=== PATIENT | female | born 1965 | race Caucasian/White ===

== ENCOUNTER → 2020-10-11 10:57 | Outpatient (BNVA) | payer OTHER, SELFPAY | PROVIDERS: PCP Internal Medicine; Referring Provider Internal Medicine; Visit Provider Nurse Practitioner Family | DX: Z12.11 Encounter for screening for malignant neoplasm of colon (principal) | CPT/HCPCS: 99202 ==

== ENCOUNTER 2021-03-01 06:57 | Day surgery (SDC) | payer OTHER, SELFPAY ==
--- NOTE | 2021-01-10 09:13 | P.CONAN_ITS ---
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 Father Lung cancer Sister No problems noted. Meds Allergies Allergy/AdvReac Type Severity Reaction Status Date / Time No Known Allergies Allergy Unverified 10/11/20 11:24 Home Medications Medication Instructions Recorded Confirmed Last Taken Type cholecalciferol (vitamin D3) 50 50 mcg PO DAILY 10/11/20 01/05/21 Unknown History mcg (2,000 unit) capsule lisinopril 20 1 tab PO DAILY 10/11/20 01/05/21 Unknown History mg-hydrochlorothiazide 12.5 mg tablet simvastatin 20 mg tablet 20 mg PO DAILY 10/11/20 01/05/21 Unknown History Exam Exam Date and Time: January 10, 2021 0913 Assessment and Plan Assessment Anesthesia Assessment: Chart Reviewed
--- NOTE | 2021-02-28 09:46 | P.CONAN_ITS ---
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 Father Lung cancer Sister No problems noted. Social History Social History Patient Tobacco Use Status: Current everyday Tobacco user Cigarettes Per Day: 2 Use of substances other than those prescribed or required for medical reasons: No Are you DNR?: No Advance Directives: No Advance Directives Information Provided: Yes Meds Allergies Allergy/AdvReac Type Severity Reaction Status Date / Time No Known Allergies Allergy Verified 03/01/21 07:20 Home Medications Medication Instructions Recorded Confirmed Last Taken Type cholecalciferol (vitamin D3) 50 50 mcg PO DAILY 10/11/20 01/05/21 Unknown History mcg (2,000 unit) capsule lisinopril 20 1 tab PO DAILY 10/11/20 01/05/21 Unknown History mg-hydrochlorothiazide 12.5 mg tablet simvastatin 20 mg tablet 20 mg PO DAILY 10/11/20 01/05/21 Unknown History Exam Exam Date and Time: February 28, 2021 0946 Assessment and Plan Assessment Anesthesia Assessment: Chart Reviewed Documented by User: Daisha Durbin MD 03/01/21 07:33 [facility] Past Medical History Medical History 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 Father Lung cancer Sister No problems noted. Family history of problems with anesthesia: No Surgical History History of Problems with Anesthesia: No Social History Social History Patient Tobacco Use Status: Current everyday Tobacco user Cigarettes Per Day: 2 Use of substances other than those prescribed or required for medical reasons: No Are you DNR?: No Advance Directives: No Advance Directives Information Provided: Yes Meds Allergies Allergy/AdvReac Type Severity Reaction Status Date / Time No Known Allergies Allergy Verified 03/01/21 07:20 Home Medications Medication Instructions Recorded Confirmed Last Taken Type cholecalciferol (vitamin D3) 50 50 mcg PO DAILY 10/11/20 01/05/21 Unknown History mcg (2,000 unit) capsule lisinopril 20 1 tab PO DAILY 10/11/20 01/05/21 Unknown History mg-hydrochlorothiazide 12.5 mg tablet simvastatin 20 mg tablet 20 mg PO DAILY 10/11/20 01/05/21 Unknown History Exam Airway Mallampati Class: II TM Dist: >3cm Neck ROM: Full Heart: RRR Lungs: CTA Assessment and Plan Final Anesthetic Review Family History of Problems with Anesthesia: No History of Problems with Anesthesia: No
[2021-03-01 07:23] VITALS: BP 119/92; PULSE 73; RESP 16; TEMP 36.1; O2SAT 99; BMI 21.4
[2021-03-01] MEDS: Lactated Ringers 1,000 ML 100 ML IVCONT (07:32)
--- NOTE | 2021-03-01 08:17 | MHC.SHP ---
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 Elevated cholesterol HTN (hypertension)) History of Previous Operations: No relevant previous surgery Allergies: Allergies Allergy/AdvReac Type Severity Reaction Status Date / Time No Known Allergies Allergy Verified 03/01/21 07:20 Review of Systems Sugical H&P ROS: Negative: Constitution, Cardiovascular, Respiratory, Neurological, Psychiatric, Hem-Onc, Allergic/Immunologic, Gastrointestinal, Genitourinary, Musculoskeletal, Integumentary, Endocrine and Eyes/Ears/Nose/Throat Exam Surgical H&P Exam: Normal: HEENT, Normal: Heart, Normal: Lungs, Normal: Extremities, Normal: Abdomen, Normal: Skin and Normal: Neurological Plan Diagnosis/Plan: Unchanged I have reviewed the history and physical and performed a pertinent physical examination on my patient. No changes have occurred unless specified.
--- NOTE | 2021-03-01 08:18 | PM.OP ---
Brief Operative Note Date of Service: 03/01/21 Pre-op diagnosis: colon screening Post-op diagnosis: same Procedure: see op note Surgeon: Joesph Zayas MD Anesthesia: MAC Was an Videotape Sales Representative used for this Procedure?: No Estimated blood loss (mL): 0 Condition: stable Disposition: PACU
--- NOTE | 2021-03-01 08:30 | P.OP_ITS ---
Operative Note Operative Note Date of Service: 03/01/21 Narrative: Operative Information Procedure Description: Colonoscopy COLONOSCOPY Instrument: Olympus variable stiffness pediatric scope 190L Colonoscopy Monitoring: Vital signs and clinical assessment, continuous EKG monitoring, Pulse oximetry, Carbon Dioxide monitoring and blood pressure monitoring were done throughout the procedure. Colon withdrawal time was 12 minutes. Procedure: The patient was placed in the left lateral decubitis position and pre-procedure medications were administered. After a digital rectal examination of the ano-rectum, the video colonoscope was inserted into the rectum and advanced through the colon to the cecum/TI. The colonoscope was slowly withdrawn in a retrograde panoramic fashion and the colon mucosa was carefully examined including a retroflexed view of the rectum. Findings and interventions are described below. Procedure Difficulty:moderate due to looping, left sided appleid to get into cecum Findings: Terminal Ileum-only superficially intubated due to looping and appeared nml Cecum: 6-7 mm sessile polyp removed with forceps Ascending Colon: normal Transverse Colon -normal Descending Colon:normal Sigmoid Colon: scattered mild diverticulosis Rectum: Retroflexion with small internal hemorrhoids, grade I with skin tag Anorectum - normal Colon preparation: [place] Bowel Preparation Scale Right colon; 1 in the cecum and proximal ascending colon with sticky debris on the mucosa Transverse colon: 3 Left colon; 3 (0 = Unprepared colon segment with mucosa not seen due to solid stool that cannot be cleared. 1 = Portion of mucosa of the colon segment seen, but other areas of the colon segment not well seen due to staining, residual stool and/or opaque liquid. 2 = Minor amount of residual staining, small fragments of stool and/or opaque liquid, but mucosa of colon segment seen well. 3 = Entire mucosa of colon segment seen well with no residual staining, small fragments of stool or opaque liquid) Impression and Post Procedure Diagnosis: polyp internal hemorrhoids diverticular disease Plan: High fiber diet leaflet Avoid straining at stool, epsom salts and sitz bath, anusol supps or cream Repeat Colonoscopy in 5 years due to polyp and right sided prep or earlier if clinically indicated Above findings were reviewed with the patient and relevant handouts were provided if indicated.
[2021-03-01 08:58] VITALS: BP 125/68; PULSE 81; RESP 16; TEMP 36.5; O2SAT 95
[2021-03-01 09:13] VITALS: BP 131/84; PULSE 20; RESP 20; TEMP 36.5; O2SAT 99
--- NOTE | 2021-03-01 10:46 | HO.POSTANES ---
Post Anesthesia Evaluation Post Anesthesia Evaluation Vital Signs: Vital Signs Temp Pulse Resp BP Pulse Ox 03/01/21 09:13 97.7 F 20 L 20 131/84 99 03/01/21 08:58 97.7 F 81 16 125/68 95 03/01/21 07:23 97.0 F 73 16 119/92 H 99 Anesthesia: Monitored Mental Status: Awake Pain Control: Satisfactory Nausea/Vomiting: None Hydration: Adequate Anesthesia-Related Issues: No Anes. Related Issues
== END 2021-03-01 09:41 | disposition home or self-care (01) ==
PROVIDERS: PCP Internal Medicine; Visit Provider Internal Medicine Gastroenterology
PROC: 0DJD8ZZ Inspection of Lower Intestinal Tract, Via Natural or Artificial Opening Endoscopic (ICD-10-PCS; CPT 45378; principal; 2021-03-01 08:30)
DX: Z12.11 Encounter for screening for malignant neoplasm of colon (principal); D12.0 Benign neoplasm of cecum; K57.30 Diverticulosis of large intestine without perforation or abscess without bleeding; K64.0 First degree hemorrhoids; K64.4 Residual hemorrhoidal skin tags; E78.00 Pure hypercholesterolemia, unspecified; I10 Essential (primary) hypertension; Z79.899 Other long term (current) drug therapy; Z86.79 Personal history of other diseases of the circulatory system; F17.210 Nicotine dependence, cigarettes, uncomplicated
CPT/HCPCS: 45380; 88305

== ENCOUNTER → 2021-03-23 12:00 | Outpatient (BNVA) | payer OTHER, SELFPAY | PROVIDERS: PCP Internal Medicine; Visit Provider Nurse Practitioner Family ==

== ENCOUNTER 2023-12-16 10:22 | Outpatient (AMB) | payer OTHER, SELFPAY ==
--- NOTE | 2023-12-16 10:19 | A.OFFVIS_ITS ---
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 Pt states her left leg gets very painful up to her thigh when sitting for longer periods of time. Pt denies numbnes or tingling in her legs or feet. Pt denies any swelling. Pt states her left leg she has no concerns about. 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 Upon discussion with her she notes that it is more so pain in the left mid thigh radiating down. It happens more so when she is in a seated position. This happens 3 times a week as she does travel to reach locations which are over 2 hours away. This requires the use of Allyvn to alleviate the discomfort. 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 She does report no difficulty ambulating distances. Upon discussion with she does have a prior history of smoking, and she is a nondiabetic. Of note the patient did have noninvasive testing which did demonstrate EDITA on the right of 0.84 and on the left of 0.76 which was done at an outpatient portable site. 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 Father Lung cancer Sister No problems noted. Social History Patient Tobacco Use Status: Current everyday Tobacco user Cigarettes Per Day: 2 Review of Systems Const All systems reviewed & are unremarkable except as noted in HPI and below Reports no additional complaints ENT Reports Normal hearing present Card Denies chest pain, Denies chest pain at rest, Denies chest pain with activity and Denies pedal edema Resp Denies cough GI Denies abdominal pain Musc Denies abnormal gait, Denies muscle cramps and Denies radiating pain into limb Skin/Breast Denies skin ulcer and Denies wounds Neuro Reports Normal hearing present and Denies abnormal gait Psych Reports no additional complaints Physical Exam Vital Signs: Last Vital Signs BP 118/74 12/16/23 10:24 BMI result Body Mass Index 21.8 Const General: cooperative, healthy appearing and comfortable Orientation/consciousness: oriented to person, oriented to place and oriented to time HEENT Head: Yes normal to inspection Neck Neck: Yes normal visual inspection Carotids: no bruits Chest Chest palpation & inspection: normal inspection of the chest Resp Effort & Inspection: normal respiratory effort and able to speak in complete sentences Auscultation: clear to auscultation bilaterally, no crackles, no rales, no rhonchi and no wheezes Cardio Other: Palpable bilateral posterior tibial pulse Rate: regular rate Rhythm: regular rhythm Heart sounds: S1 normal heart sound present and S2 normal heart sound present Bruits: no carotid bruits Peripheral pulses: Peripheral pulses 2+ throughout GI Inspection: Yes normal to inspection Skin Wounds: no wounds Hair: normal Neuro General: oriented to person, oriented to place and oriented to time Cranial nerves: Yes CN's II-XII intact bilaterally and Yes Normal hearing present Cognition (Neuro): normal cognition Motor exam (neuro): 5/5 motor strength present throughout Extrem Other: venous exam: No significant superficial varicosities or spider telangiectasias, minimal edema General: No clubbing, No cyanosis and No edema Psych Appearance: grossly normal Mental Status: mental status grossly normal Speech and movement: Normal speech and movement present Assessment & Plan Assessment & Plan (1) PAD (peripheral artery disease): Code(s): I73.9 - Peripheral vascular disease, unspecified Category: Medical Plan: In short the patient may have an element of peripheral vascular disease. It is unclear what the etiology of this pain on the left thigh and leg may be from. This may be musculoskeletal in nature as it is relieved by nonsteroidal anti- inflammatories. At the current time I do appreciate palpable posterior tibial pulses I do think that the arterial testing may be a bit of an over estimation. I have discussed routine conservative measures and risk factor modification. I have requested that the patient follow up with us in 3 months with repeat surveillance testing. Thank you for allowing us to participate in the care of this very nice woman. If there are any questions or concerns please do not hesitate to contact us. Orders: Orders US arterial duplex LE BI 3 Months I73.9 - Peripheral vascular disease, unspecified Coding Level of Care Code New Pt Level 4 (97178) Diagnoses PAD (peripheral artery disease) I73.9
[2023-12-16 10:24] VITALS: BP 118/74; BMI 21.8
== END 2023-12-16 10:53 | disposition home or self-care (01) ==
PROVIDERS: PCP Internal Medicine; Visit Provider Surgery Vascular Surgery
DX: I73.9 Peripheral vascular disease, unspecified (principal)
CPT/HCPCS: 99204

== ENCOUNTER → 2023-12-16 10:22 | Outpatient (BNVA) | payer OTHER, SELFPAY | PROVIDERS: PCP Internal Medicine; Visit Provider Surgery Vascular Surgery | DX: I73.9 Peripheral vascular disease, unspecified (principal) | CPT/HCPCS: 99202 ==

== ENCOUNTER 2024-01-07 08:08 | Outpatient (REF) | payer OTHER, SELFPAY ==
--- NOTE | ~2024-01-07 | US_ITS ---
EXAMINATION: US ABDOMEN COMPLETE CLINICAL INFORMATION: Abnormal LFTs. COMPARISON: None available. TECHNIQUE: Real-time imaging of the abdominal viscera. FINDINGS: PANCREAS: Normal. ABDOMINAL AORTA: The proximal, mid, and distal segments are normal in caliber. INFERIOR VENA CAVA: Visualized portions are normal. LIVER: Liver is increased in echotexture. No focal masses are observed. There is no intrahepatic biliary dilatation. The liver does appear to be prominent. GALLBLADDER: Normal. The gallbladder is physiologically distended without evidence of stones, sludge, polyps, wall thickening or pericholecystic fluid. COMMON BILE DUCT: Normal in caliber measuring 0.4 cm in diameter. RIGHT KIDNEY: Normal. No hydronephrosis. No renal calculi or focal parenchymal lesions. The kidney measures 10.6 cm in maximum dimension. LEFT KIDNEY: Normal. No hydronephrosis. No renal calculi or focal parenchymal lesions. The kidney measures 10.5 cm in maximum dimension. SPLEEN: Normal. The spleen measures 11.3 cm in maximum dimension. FREE FLUID: None. US/US abdomen complete IMPRESSION: Enlarged fatty liver. No gallstones or biliary dilatation. Electronically signed by: Barry Jones MD 01/07/2024 11:13 AM EDT
== END 2024-01-07 08:09 | disposition home or self-care (01) ==
LOC: HO.US 08:08
PROVIDERS: PCP Nurse Practitioner; Visit Provider Nurse Practitioner
DX: R94.5 Abnormal results of liver function studies (principal)
CPT/HCPCS: 76700

== ENCOUNTER 2024-03-17 08:06 | Outpatient (AMB) | payer OTHER, SELFPAY ==
[2024-03-17 08:21] VITALS: BP 142/88; PULSE 68; O2SAT 98; BMI 21.6
--- NOTE | 2024-03-17 08:21 | A.OFFVIS_ITS ---
Vital Signs 03/17/24 08:21 Height 5 ft 6 in Weight 133 lb 9.602 oz BMI 21.6 BP 142/88 H Blood Pressure Location Rt brachial Position Sitting Pulse 68 Pulse Source Pulse Oximeter Pulse Oximetry (%) 98 Oxygen Delivery Method Room Air Intake Visit Reasons: Elevated LFTs Intake Note: Relevant Flags or Indicators ? Requires Sports Fitness And Wellness Director? N Tarah presents in office today for a scheduled assessment to re-establish care. Pt last seen 3 years ago. Pt is here for recall colo. Pt originally instructed for recall in [address] Zayas. CC; PCP recently ordered labs and US. No additional orders reported. ? Relevant GI Sx as reported per pt? None ? Hx of any recent surgeries? None Sports Fitness And Wellness Director Required: No Allergies No Known Allergies Allergy (Verified 04/01/24 10:58) HPI HPI Elevated LFTs: Details: LAST VISIT: Tubular adenoma Tubular adenoma with no high grade dysplasia or carcinoma seen. Patient will need to have a repeat colonoscopy in 5 years. As mentioned above patient denies any melena, hematochezia unintentional weight loss or ribbon like stools. Patient was instructed to watch for symptoms and call us if any. Discussed with her the importance of early colorectal screening in blood relatives. Diverticulosis Diverticulosis found on colonoscopy screening. Discussed with her the importance of fiber in her diet. Patient also can take [id number] fiber supplements Status post colonoscopy As mentioned above in HPI patient is doing well after colonoscopy screening. Denies any ill effects from the prep, anesthesia or procedure itself. Denies any GI symptoms. Will need to have a colorectal screening in 5 years due to tubular adenoma found. Patient will call us sooner if she will experience any symptoms. She is agreeable to plan of care and verbalizes understanding of instructions. She was given the opportunity to ask questions and all questions answered. TODAY'S VISIT Patient has been referred by her PCP for increase liver enzymes. Patient had increase liver enzymes in September AST 59 and ALT 45, repeated lab work in December and her AST doubled to 103 and ALT was 45. Patient admits that she had been drinking alcohol. PCP has ordered abdominal ultrasound that was performed at the end of others and showed increased echogenicity and enlarged liver. Patient denies any abdominal pain or discomfort. Denies any GI concerning symptoms. No family history of liver cirrhosis can ? 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 Father Lung cancer Sister No problems noted. Social History Patient Tobacco Use Status: Current everyday Tobacco user Cigarettes Per Day: 2 Review of Systems Const Denies weight gain and Denies weight loss ENT Reports no additional complaints, Denies dysphagia and Denies odynophagia Card Reports no additional complaints Resp Reports no additional complaints GI Denies abdominal pain, Denies belching, Denies melena, Denies bloating, Denies change in bowel habits, Denies dysphagia, Denies excessive flatus, Denies dyspepsia, Denies heartburn, Denies diarrhea, Denies loose stools, Denies nausea, Denies odynophagia and Denies vomiting Musc Reports no additional complaints Neuro Reports no additional complaints Psych Reports no additional complaints Endo Reports no additional complaints Physical Exam Vital Signs: Last Vital Signs Pulse 68 03/17/24 08:21 BP 142/88 H 03/17/24 08:21 Pulse Ox 98 03/17/24 08:21 Oxygen Delivery Method Room Air 03/17/24 08:21 BMI result Body Mass Index 21.6 Const General: healthy appearing, no acute distress and well developed Nutritional Appearance: well nourished Orientation/consciousness: patient oriented x3 Resp Effort & Inspection: normal respiratory effort, able to speak in complete sentences, no tracheal deviation and symmetric chest movement Auscultation: clear to auscultation bilaterally Cardio Rate: regular rate GI Inspection: Yes normal to inspection and No distended Palpation (GI): Soft to palpation, not firm, nontender and No hepatosplenomegaly present Auscultation: normal bowel sounds General: Yes no CVA tenderness Back/Spine/Pelvis Back: no CVA tenderness Skin General skin exam: elasticity normal, turgor normal and dry skin Neuro General: patient oriented x3 Psych Appearance: grossly normal Mental Status: mental status grossly normal Results Reviewed Results Reviewed: ABDOMINAL ULTRASOUND FINDINGS: PANCREAS: Normal. ABDOMINAL AORTA: The proximal, mid, and distal segments are normal in caliber. INFERIOR VENA CAVA: Visualized portions are normal. LIVER: Liver is increased in echotexture. No focal masses are observed. There is no intrahepatic biliary dilatation. The liver does appear to be prominent. GALLBLADDER: Normal. The gallbladder is physiologically distended without evidence of stones, sludge, polyps, wall thickening or pericholecystic fluid. COMMON BILE DUCT: Normal in caliber measuring 0.4 cm in diameter. RIGHT KIDNEY: Normal. No hydronephrosis. No renal calculi or focal parenchymal lesions. The kidney measures 10.6 cm in maximum dimension. LEFT KIDNEY: Normal. No hydronephrosis. No renal calculi or focal parenchymal lesions. The kidney measures 10.5 cm in maximum dimension. SPLEEN: Normal. The spleen measures 11.3 cm in maximum dimension. FREE FLUID: None. US/US abdomen complete IMPRESSION: Enlarged fatty liver. No gallstones or biliary dilatation. Assessment & Plan Assessment & Plan (1) Transaminitis: Code(s): R74.01 - Elevation of levels of liver transaminase levels (2) Hepatomegaly: Code(s): R16.0 - Hepatomegaly, not elsewhere classified (3) Non-alcoholic fatty liver disease: Code(s): K76.0 - Fatty (change of) liver, not elsewhere classified Plan Patient will be sent for blood work to rule out autoimmune disorders. Patient was encouraged to avoid alcohol and liver toxic medications like Tylenol will send her for ultrasound with elastography. Will do liver fibrosis panel as well as check her liver enzymes again. She will return in 3 months to discuss results. High-protein, low-fat low-salt and low carb diet discussed with patient. She is agreeable to this plan and verbalizes understanding of instructions. She was given the opportunity to ask questions and all questions answered. Thank you for allowing me to participate in her care Orders: Orders Liver Panel 11/06/24 R74.01 - Elevation of levels of liver transaminase levels Liver Fibrosis Pnl 03/17/24 K76.0 - Fatty (change of) liver, not elsewhere classified Ferritin 03/17/24 R74.8 - Abnormal levels of other serum enzymes Alpha Fetoprotein 03/17/24 R79.89 - Other specified abnormal findings of blood chemistry C Reactive Protein 03/17/24 K58.9 - Irritable bowel syndrome, unspecified Hemoglobin A1c 03/17/24 E11.9 - Type 2 diabetes mellitus without complications US abdomen carrasco w elastography 03/17/24 K76.0 - Fatty (change of) liver, not elsewhere classified Mitochondrial Antibody 03/17/24 R79.89 - Other specified abnormal findings of blood chemistry Smooth Muscle Antibody 03/17/24 R79.89 - Other specified abnormal findings of blood chemistry Prothrombin Time INR 03/17/24 R74.8 - Abnormal levels of other serum enzymes Ceruloplasmin 03/17/24 R79.89 - Other specified abnormal findings of blood chemistry Complete Blood Count no Diff 03/17/24 K21.9 - Gastro-esophageal reflux disease without esophagitis Medications: Discontinued polyethylene glycol 3350 As directed by gastroenterology department at [facility] Discontinued Reason: Patient no longer taking 238 grams PO ONCE 238 grams 0RF Z12.11 - Encounter for screening for malignant neoplasm of colon bisacodyl take 2 tabs at noon the day before your colonoscopy Discontinued Reason: Patient no longer taking 10 mg (2 x 5 mg) PO ONCE 1 day 2 tabs 0RF Z12.11 - Encounter for screening for malignant neoplasm of colon Coding Level of Care Code Est Pt Level 4 (86103) Diagnoses Transaminitis R74.01 Hepatomegaly R16.0 Non-alcoholic fatty liver disease K76.0 Time Spent (min) 35 Comment 20 minutes spent with patient and additional 15 minutes spent reviewing her records
== END 2024-03-17 09:02 | disposition home or self-care (01) ==
LOC: HO.HGI 08:06
PROVIDERS: PCP Internal Medicine; Visit Provider Nurse Practitioner Family
DX: R74.01 Elevation of levels of liver transaminase levels (principal); R16.0 Hepatomegaly, not elsewhere classified; K76.0 Fatty (change of) liver, not elsewhere classified
CPT/HCPCS: 99214

== ENCOUNTER → 2024-03-17 08:06 | Outpatient (BNVA) | payer OTHER, SELFPAY | PROVIDERS: PCP Internal Medicine; Visit Provider Nurse Practitioner Family | DX: K57.90 Diverticulosis of intestine, part unspecified, without perforation or abscess without bleeding (principal); K58.9 Irritable bowel syndrome, unspecified; K76.0 Fatty (change of) liver, not elsewhere classified; R74.01 Elevation of levels of liver transaminase levels; R16.0 Hepatomegaly, not elsewhere classified; R79.89 Other specified abnormal findings of blood chemistry; R74.8 Abnormal levels of other serum enzymes | CPT/HCPCS: 99212 ==

== ENCOUNTER 2024-03-24 08:57 | Outpatient (REF) | payer OTHER, SELFPAY ==
--- NOTE | ~2024-03-24 | US_ITS ---
EXAMINATION: Noninvasive assessment of the bilateral lower extremities with ARTERIAL DUPLEX and ANKLE BRACHIAL INDICES (ABIs). CLINICAL INFORMATION: Peripheral vascular disease TECHNIQUE: Duplex Doppler techniques with waveform analysis and measurement of velocities in the bilateral common femoral, profunda femoris, superficial femoral, popliteal and tibial arteries were performed. Additionally, ankle pulse volume recordings, ankle pressure measurements and ankle brachial indices were obtained of the lower extremity arterial system bilaterally. The study was performed only at rest. COMPARISON: None FINDINGS: DIRECT DUPLEX DOPPLER FINDINGS: RIGHT LEG: Common femoral artery: 94.8 cm/s, phasicity: Triphasic Profunda femoris artery: 39.0 cm/s, phasicity: Triphasic Superficial femoral artery (proximal): 60.1 cm/s, phasicity: Triphasic Superficial femoral artery (mid): 66.0 cm/s, phasicity: Triphasic Superficial femoral artery (distal): 50.4 cm/s, phasicity: Biphasic Popliteal artery: 48.4 cm/s, phasicity: Triphasic Posterior tibial artery: 67.0 cm/s, phasicity: Biphasic Peroneal artery: 55.7 cm/s, phasicity: Biphasic Anterior tibial artery: 36.7 cm/s, phasicity: Biphasic Dorsalis pedis artery: 26.1 cm/s, phasicity:Biphasic LEFT LEG: Common femoral artery: 99.4 cm/s, phasicity: Triphasic Profunda femoris artery: 54.6 cm/s, phasicity: Triphasic Superficial femoral artery (proximal): 62.8 cm/s, phasicity: Triphasic Superficial femoral artery (mid): 62.4 cm/s, phasicity: Triphasic Superficial femoral artery (distal): 41.9 cm/s, phasicity: Biphasic Popliteal artery: 39.1 cm/s, phasicity: Biphasic Posterior tibial artery: 62.6 cm/s, phasicity: Biphasic Peroneal artery: 49.0 cm/s, phasicity: Biphasic Anterior tibial artery: 40.8 cm/s, phasicity: Biphasic Dorsalis pedis artery: 23.4 cm/s, phasicity: Biphasic ANKLE-BRACHIAL INDEX: Right: 1.11 Left: 1.08 ANKLE PRESSURES: Right: PT 142, DP 125 Left: PT 138, DP 128 ANKLE PVR WAVEFORMS: Right: Normal Left: Normal US/US arterial duplex BI w/ EDITA IMPRESSION: Right leg: Normal noninvasive arterial evaluation and duplex ultrasound Left leg: Normal noninvasive arterial evaluation and duplex ultrasound EDITA Reference: - >1.4 = calcified vessels - 0.9 - 1.4 = normal - no significant arterial disease - 0.7 - 0.89 = mild peripheral arterial disease - 0.51 - 0.69 = moderate peripheral arterial disease - d 0.50 = severe peripheral arterial disease - < .30 = critical arterial disease Electronically signed by: Christiano Villagomez MD 03/24/2024 11:25 AM EST
== END 2024-03-24 08:58 | disposition home or self-care (01) ==
LOC: HO.US 08:57
PROVIDERS: PCP Nurse Practitioner; Visit Provider Surgery Vascular Surgery
DX: I73.9 Peripheral vascular disease, unspecified (principal)
CPT/HCPCS: 93922; 93925

== ENCOUNTER 2024-04-01 10:52 | Outpatient (AMB) | payer OTHER, SELFPAY ==
[2024-04-01 10:54] VITALS: BMI 21.5
--- NOTE | 2024-04-01 10:54 | A.OFFVIS_ITS ---
Vital Signs 04/01/24 10:54 Height 5 ft 6 in Weight 133 lb BMI 21.5 Intake Visit Reasons: follow up s/p Arterial US 03/24/24 Intake Note: 3 mo follow up ARterial US 03/24/24, Pt states that Left LE is worse than the right LE. Pt states over the past 3 months she has had no pain until yesterday when she had Left LE thigh cramping. She states worse when she is sitting for long periods. Pt states when she is ambulating she has no pain Accompanied by: Self / Same As Patient Allergies No Known Allergies Allergy (Verified 04/01/24 10:58) HPI HPI follow up s/p Arterial US 03/24/24: Details: Very pleasant 58-year-old female presents for follow-up regarding lower extremity pain. She describes it more of a left anterior thigh type of pain. She did take some Aleve and it did seem to alleviate her discomfort. Of note since her last visit she did not have any discomfort. 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 Father Lung cancer Sister No problems noted. Social History Patient Tobacco Use Status: Current everyday Tobacco user Cigarettes Per Day: 2 Review of Systems Const All systems reviewed & are unremarkable except as noted in HPI and below Reports no additional complaints ENT Reports Normal hearing present Card Denies chest pain, Denies chest pain at rest, Denies chest pain with activity and Denies pedal edema Resp Denies cough GI Denies abdominal pain Musc Denies abnormal gait, Denies muscle cramps and Denies radiating pain into limb Skin/Breast Denies skin ulcer and Denies wounds Neuro Reports Normal hearing present and Denies abnormal gait Psych Reports no additional complaints Physical Exam Vital Signs: BMI result Body Mass Index 21.5 Const General: cooperative, healthy appearing and comfortable Orientation/consciousness: oriented to person, oriented to place and oriented to time HEENT Head: Yes normal to inspection Neck Neck: Yes normal visual inspection Carotids: no bruits Chest Chest palpation & inspection: normal inspection of the chest Resp Effort & Inspection: normal respiratory effort and able to speak in complete sentences Auscultation: clear to auscultation bilaterally, no crackles, no rales, no rhonchi and no wheezes Cardio Other: Bilateral posterior tibial pulse Rate: regular rate Rhythm: regular rhythm Heart sounds: S1 normal heart sound present and S2 normal heart sound present Bruits: no carotid bruits Peripheral pulses: Peripheral pulses 2+ throughout GI Inspection: Yes normal to inspection Skin Wounds: no wounds Hair: normal Neuro General: oriented to person, oriented to place and oriented to time Cranial nerves: Yes CN's II-XII intact bilaterally and Yes Normal hearing present Cognition (Neuro): normal cognition Motor exam (neuro): 5/5 motor strength present throughout Extrem Other: venous exam: No significant superficial varicosities or spider telangiectasias, minimal edema General: No clubbing, No cyanosis and No edema Psych Appearance: grossly normal Mental Status: mental status grossly normal Speech and movement: Normal speech and movement present Results Reviewed Results Reviewed: Noninvasive arterial testing dated 03/24/2024 demonstrates EDITA on the right of 1.1 and on the left of 1.08. Written report and images were reviewed. Assessment & Plan Assessment & Plan (1) PAD (peripheral artery disease): Code(s): I73.9 - Peripheral vascular disease, unspecified Category: Medical Plan: In short I do not believe the patient has any significant arterial disease. I do think this is more musculoskeletal in nature. Her arterial testing is within normal limits. I did relay all this information to the patient and the patient was in agreement. Thank you for allowing us to assist in this patient's care. If there are any questions or concerns please do not hesitate to contact us. Coding Level of Care Code Est Pt Level 3 (54833) Diagnoses PAD (peripheral artery disease) I73.9
== END 2024-04-01 11:20 | disposition home or self-care (01) ==
PROVIDERS: PCP Nurse Practitioner; Visit Provider Surgery Vascular Surgery
DX: I73.9 Peripheral vascular disease, unspecified (principal)
CPT/HCPCS: 99213

== ENCOUNTER → 2024-04-01 10:52 | Outpatient (BNVA) | payer OTHER, SELFPAY | PROVIDERS: PCP Nurse Practitioner; Visit Provider Surgery Vascular Surgery | DX: I73.9 Peripheral vascular disease, unspecified (principal) | CPT/HCPCS: 99212 ==

== ENCOUNTER 2024-04-05 09:19 | Outpatient (REF) | payer OTHER, SELFPAY ==
--- NOTE | ~2024-04-05 | US_ITS ---
EXAMINATION: US ABDOMEN LIMITED WITH LIVER ELASTOGRAPHY CLINICAL INFORMATION: Fatty liver COMPARISON: Ultrasound abdomen 01/07/2024. TECHNIQUE: Real-time imaging of the abdominal viscera. Noninvasive ultrasound liver fibrosis assessment is performed using Evelyn ElastPQ point quantification shear wave elastography (pSWE) with a 5 MHz transducer. Multiple elastography samples are obtained. FINDINGS: PANCREAS: The visualized pancreatic head and body are normal in appearance. The remainder of the pancreas is obscured from visualization by the overlying bowel gas. LIVER: The liver is enlarged and echogenic with normal contour. No focal lesion or intrahepatic biliary duct dilatation. The right lobe measures 18.1 cm in length. The left lobe measures 12.4 cm in length. There is normal hepatopedal flow in the portal venous system Shear wave elastography provides a median stiffness of 1.94 m/s (reference: normal median stiffness is 0.81 - 1.22 m/s). The IQR/median stiffness to assess sampling precision is 0.03 (reference: optimal IQR/median stiffness is under 0.3). GALLBLADDER: The gallbladder is physiologically distended without evidence of stones, sludge, polyps, wall thickening or pericholecystic fluid. COMMON BILE DUCT: Normal in caliber measuring 0.3 cm in diameter. RIGHT KIDNEY: No hydronephrosis. No renal calculi or focal parenchymal lesions. The kidney measures 11.1 cm in maximum dimension. FREE FLUID: None. US/US abdomen carrasco w elastography IMPRESSION: 1. Enlarged fatty liver 2. Elastography: Liver elastography measurements are suggestive of compensated advanced chronic liver disease Electronically signed by: José Miguel Engel MD 04/05/2024 02:35 PM [facility]
== END 2024-04-05 09:20 | disposition home or self-care (01) ==
LOC: HO.US 09:19
PROVIDERS: PCP Internal Medicine; Visit Provider Nurse Practitioner Family
DX: K76.0 Fatty (change of) liver, not elsewhere classified (principal)
CPT/HCPCS: 76705; 76981

== ENCOUNTER 2024-04-12 13:01 | Outpatient (REF) | payer OTHER, SELFPAY ==
[2024-04-12 14:00] LABS: Hematocrit 46.6 % (37.0-47.0); Hemoglobin 16.2 g/dl (12.0-16.0); Mean Corpuscular HGB Conc 34.8 g/dl (31.0-35.0); Mean Corpuscular Hemoglobin 32.6 pg (27.0-33.0); Mean Corpuscular Volume 93.8 fL (80.0-98.0); Mean Platelet Volume 10.3 fL (9.4-12.3); Platelet Count 232 X10*3/uL (160-400); Red Blood Count 4.97 X10*6/uL (4.20-5.50); Red Cell Distribution Width 11.5 % (11.0-16.0)
[2024-04-12 14:07] LABS: Prothrombin Time 11.7 SEC (10.9-12.4)
[2024-04-12 14:15] LABS: Estimated Average Glucose 97 mg/dL; Hemoglobin A1C 128.6381 umol/L; Total Hemoglobin (HGBA1C) 4082.0331 umol/L
[2024-04-12 14:49] LABS: Alanine Aminotransferase 72 U/L (0-31); Albumin Level 4.7 g/dL (3.5-5.0); Alkaline Phosphatase 96 U/L (39-117); Aspartate Amino Transferase 73 U/L (5-31); Bilirubin Direct 0.2 mg/dL (0.0-0.5); Bilirubin Total 0.6 mg/dL (0.0-1.0); C Reactive Protein 0.25 mg/dL (< or = 0.50); Total Protein 7.7 g/dL (6.5-8.0)
[2024-04-12 14:56] LABS: Ferritin 1042 ng/mL (10-250)
[2024-04-13 09:28] LABS: Ceruloplasmin 29 mg/dL (14-48)
[2024-04-13 11:48] LABS: Mitochondrial Antibodies NEGATIVE (NEGATIVE)
[2024-04-13 13:09] LABS: Alpha Fetoprotein 5.9 ng/mL
[2024-04-14 22:29] LABS: Smooth Muscle Antibody 35 U (<20)
[2024-04-19 15:18] LABS: FIB-ALT 55 U/L (6-29); FIB-Alpha-2-Macroglobulin 160 mg/dL (106-279); FIB-Apolipoprotein A1 210 mg/dL (101-198); FIB-GGT 167 U/L (3-65); FIB-Haptoglobin 149 mg/dL (43-212); FIB-Total Bilirubin 0.5 mg/dL (0.2-1.2); Liver Fibrosis Score 0.15; Liver Fibrosis Stage F0; Nec Inflam Act Grade A0-A1; Nec Inflam Act Score 0.27; Reference ID 5237879
== END 2024-04-12 13:02 | disposition home or self-care (01) ==
LOC: HO.LAB 13:01
PROVIDERS: PCP Nurse Practitioner; Visit Provider Nurse Practitioner Family
DX: R79.89 Other specified abnormal findings of blood chemistry (principal); R74.01 Elevation of levels of liver transaminase levels; K58.9 Irritable bowel syndrome, unspecified; E11.9 Type 2 diabetes mellitus without complications; R74.8 Abnormal levels of other serum enzymes; K76.0 Fatty (change of) liver, not elsewhere classified; K21.9 Gastro-esophageal reflux disease without esophagitis
CPT/HCPCS: 36415; 80076; 81596; 82105; 82390; 82728; 83036; 85027; 85610; 86015; 86140; 86381

== ENCOUNTER → 2024-06-16 15:39 | Outpatient (BNVA) | payer OTHER, SELFPAY | PROVIDERS: PCP Nurse Practitioner; Visit Provider Nurse Practitioner Family | DX: K76.0 Fatty (change of) liver, not elsewhere classified (principal); R74.01 Elevation of levels of liver transaminase levels; R16.0 Hepatomegaly, not elsewhere classified | CPT/HCPCS: 99212 ==

== ENCOUNTER 2024-07-15 10:59 | Outpatient (REF) | payer OTHER, SELFPAY ==
[2024-07-15 12:00] LABS: Alanine Aminotransferase 77 U/L (0-31); Albumin Level 4.8 g/dL (3.5-5.0); Alkaline Phosphatase 96 U/L (39-117); Aspartate Amino Transferase 86 U/L (5-31); Bilirubin Direct 0.3 mg/dL (0.0-0.5); Iron 135 mcg/dL (30-160); Percent Iron Saturation 36 % (15-50); Total Iron Binding Capacity 370 mcg/dL (228-428); Total Protein 8.6 g/dL (6.5-8.0); Unsaturated Iron Binding 235 ug/dL
[2024-07-15 12:07] LABS: TSH reflex Free T4 1.03 uIU/mL (0.32-4.0)
[2024-07-15 12:38] LABS: Ferritin 1486 ng/mL (10-250)
[2024-07-19 09:43] LABS: Prot Elec - Albumin 4.9 g/dL (3.8-4.8); Prot Elec - Alpha1 0.3 g/dL (0.2-0.3); Prot Elec - Alpha2 0.8 g/dL (0.5-0.9); Prot Elec - Beta 1 0.5 g/dL (0.4-0.6); Prot Elec - Beta 2 0.5 g/dL (0.2-0.5); Prot Elec - Gamma 1.1 g/dL (0.8-1.7); Prot Elec - Total Protein 8.1 g/dL (6.1-8.1)
[2024-07-19 12:18] LABS: Anti Nuclear Antibody Screen NEGATIVE (NEGATIVE)
[2024-07-20 06:34] LABS: Liver Kidney Microsomal Ab <=20.0 U (<=20.0)
[2024-07-21 21:38] LABS: Transglutaminase Ab IgG <1.0 U/mL
== END 2024-07-15 11:00 | disposition home or self-care (01) ==
LOC: HO.LAB 10:59
PROVIDERS: PCP Internal Medicine; Visit Provider Nurse Practitioner Family
DX: R79.89 Other specified abnormal findings of blood chemistry (principal); R10.9 Unspecified abdominal pain; R74.8 Abnormal levels of other serum enzymes; R16.0 Hepatomegaly, not elsewhere classified; R74.01 Elevation of levels of liver transaminase levels; D64.9 Anemia, unspecified
CPT/HCPCS: 36415; 80076; 81256; 82728; 83540; 84165; 84443; 86038; 86364; 86376

== ENCOUNTER 2024-11-24 09:15 | Outpatient (REF) | payer OTHER, SELFPAY ==
--- NOTE | ~2024-11-24 | US_ITS ---
EXAMINATION: US ABDOMEN LIMITED WITH LIVER ELASTOGRAPHY CLINICAL INFORMATION: Fatty liver COMPARISON: April 05, 2024 TECHNIQUE: Real-time imaging of the abdominal viscera. Noninvasive ultrasound liver fibrosis assessment is performed using Evelyn ElastPQ point quantification shear wave elastography (pSWE) with a 5 MHz transducer. Multiple elastography samples are obtained. FINDINGS: PANCREAS: The visualized pancreatic head and body are normal in appearance. The remainder of the pancreas is obscured from visualization by the overlying bowel gas. LIVER: Liver demonstrates coarse hyperechogenicity. The right lobe measures 17.6 cm, previously 18.1 cm in length Shear wave elastography provides a median stiffness of 1.78 m/s, previously 1.94 m/s (reference: normal median stiffness is 0.81 - 1.22 m/s). The IQR/median stiffness to assess sampling precision is 0.03 (reference: optimal IQR/median stiffness is under 0.3). GALLBLADDER: The gallbladder is physiologically distended without evidence of stones, sludge, polyps, wall thickening or pericholecystic fluid. EXTRAHEPATIC BILE DUCT: Normal in caliber measuring 0.3 cm in diameter. RIGHT KIDNEY: No hydronephrosis. No renal calculi or focal parenchymal lesions. The kidney measures 11.6 cm in maximum dimension. FREE FLUID: None seen. US/US abdomen carrasco w elastography IMPRESSION: 1. Fatty liver. 2. Liver elastography: 1.78 m/s, previously 1.4 m/s. Suggestive of mild improvement. Measurements are suggestive of compensated advanced chronic liver disease but need further test for confirmation. REFERENCE: Society of Radiologists in Ultrasound Liver Stiffness Thresholds (2019): LIVER STIFFNESS THRESHOLDS: *Liver Stiffness equal or less than 1.3 m/s: High probability of being normal. *Liver Stiffness less than 1.7 m/s: In the absence of other known clinical signs, rules out compensated advanced chronic liver disease. *Liver Stiffness 1.7-2.1 m/s: Suggestive of compensated advanced chronic liver disease but need further test for confirmation. *Liver Stiffness over 2.1 m/s: Rules in compensated advanced chronic liver disease. *Liver Stiffness over 2.4 m/s: Suggestive of clinically significant portal hypertension. QUALITY OF DATA SET: *IQR/Median value equal or less than 0.15 implies a quality data set. *IQR/Median value over 0.15 implies a poor quality data set. SIGNIFICANT CHANGE FROM PRIOR EXAM: Significant change if liver stiffness measurement is 10% or greater from prior exam. OTHER CONSIDERATIONS: The stage of liver fibrosis may be overestimated in the setting of acute hepatitis, liver inflammation, elevated liver function tests, hepatic vascular congestion, obstructive cholestasis, non-fasting state, and infiltrative diseases such as amyloidosis and lymphoma. In some patients with NAFLD, the liver stiffness thresholds for compensated advanced chronic liver disease may be lower. In causes other than viral hepatitis and NAFLD, liver stiffness thresholds are not well established. Electronically signed by: Mitesh Asencio MD 11/24/2024 10:40 AM EDT
== END 2024-11-24 09:16 | disposition home or self-care (01) ==
LOC: HO.US 09:15
PROVIDERS: PCP Internal Medicine; Visit Provider Nurse Practitioner Family
DX: K76.0 Fatty (change of) liver, not elsewhere classified (principal)
CPT/HCPCS: 76705; 76981

== ENCOUNTER → 2024-11-24 09:17 | Outpatient (BNV) | payer OTHER, SELFPAY | PROVIDERS: PCP Internal Medicine; Visit Provider Radiology Diagnostic Radiology | DX: K76.0 Fatty (change of) liver, not elsewhere classified (principal) | CPT/HCPCS: 76705 ==

== ENCOUNTER 2024-12-20 10:51 | Outpatient (AMB) | payer OTHER, SELFPAY ==
--- NOTE | 2024-12-20 10:53 | A.OFFVIS_ITS ---
Vital Signs 12/20/24 11:01 Height 5 ft 6 in Weight 130 lb BMI 21.0 BP 148/94 H Blood Pressure Location Rt brachial Position Sitting Pulse 82 Pulse Source Pulse Oximeter Pulse Oximetry (%) 98 Oxygen Delivery Method Room Air Intake Visit Reasons: 6 mo f/u Hematomegaly Intake Note: ESTABLISHED PATIENT for Hepatomegaly, Diverticulosis mgmt. Labs and imaging done. Chief Complaint; Pt denies any changes or new sx since last visit. 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 Please call patient's insurance to get a PA for hemochromatosis screening. Will repeat ferritin, iron profile, transglutaminase. Patient will return in 6 months to re-evaluate. Patient will go for another ultrasound with liver elastography. Patient will follow-up in 6 months. Will call patient with results. If positive for hemochromatosis will send her to Hematology. Orders US abdomen carrasco w elastography 06/16/24 K76.0 Liver Panel 06/16/24 R74.01 Transglutaminase Ab IgG 06/16/24 R10.9 Ferritin 06/16/24 R74.8 TODAY'S VISIT Patient is here today for follow-up and to discuss ultrasound with elastography and lab results. Mild improvement in liver elastography. However compensated advanced liver disease. 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 This patient is negative for the H63D pathogenic variant. Individuals with this genotype may have elevated serum transferrin iron saturation levels. Patient denies any GI concerning symptoms today. Ferritin levels are still elevated. Patient denies drinking alcohol. Patient reports that she eats only once or twice a day. Patient denies eating fatty food or fried. FIB 4 score: 2.58?points Further investigation needed Approximate fibrosis stage: Zaynab 2-3 (David et al 2006) [facility] Medical History (Updated 12/20/24 @ 19:23 by Fang Garnica, 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 Father Lung cancer Sister No problems noted. Social History Patient Tobacco Use Status: Current everyday Tobacco user Cigarettes Per Day: 2 Review of Systems Const Denies weight gain and Denies weight loss ENT Reports no additional complaints, Denies dysphagia and Denies odynophagia Card Reports no additional complaints Resp Reports no additional complaints GI Denies abdominal pain, Denies belching, Denies melena, Denies bloating, Denies change in bowel habits, Denies dysphagia, Denies excessive flatus, Denies dyspepsia, Denies heartburn, Denies diarrhea, Denies loose stools, Denies nausea, Denies odynophagia and Denies vomiting Musc Reports no additional complaints Neuro Reports no additional complaints Psych Reports no additional complaints Endo Reports no additional complaints Physical Exam Vital Signs: Last Vital Signs Pulse 82 12/20/24 11:01 BP 148/94 H 12/20/24 11:01 Pulse Ox 98 12/20/24 11:01 Oxygen Delivery Method Room Air 12/20/24 11:01 BMI result Body Mass Index 21.0 Const General: healthy appearing, no acute distress and well developed Nutritional Appearance: well nourished Orientation/consciousness: patient oriented x3 Resp Effort & Inspection: normal respiratory effort, able to speak in complete sentences, no tracheal deviation and symmetric chest movement Auscultation: clear to auscultation bilaterally Cardio Rate: regular rate GI Inspection: Yes normal to inspection and No distended Palpation (GI): Soft to palpation, not firm, nontender and No hepatosplenomegaly present Auscultation: normal bowel sounds General: Yes no CVA tenderness Back/Spine/Pelvis Back: no CVA tenderness Skin General skin exam: elasticity normal, turgor normal and dry skin Neuro General: patient oriented x3 Psych Appearance: grossly normal Mental Status: mental status grossly normal Results Reviewed Results Reviewed: LIVER ELASTOGRAPHY FINDINGS: PANCREAS: The visualized pancreatic head and body are normal in appearance. The remainder of the pancreas is obscured from visualization by the overlying bowel gas. LIVER: Liver demonstrates coarse hyperechogenicity. The right lobe measures 17.6 cm, previously 18.1 cm in length Shear wave elastography provides a median stiffness of 1.78 m/s, previously 1.94 m/s (reference: normal median stiffness is 0.81 - 1.22 m/s). The IQR/median stiffness to assess sampling precision is 0.03 (reference: optimal IQR/median stiffness is under 0.3). GALLBLADDER: The gallbladder is physiologically distended without evidence of stones, sludge, polyps, wall thickening or pericholecystic fluid. EXTRAHEPATIC BILE DUCT: Normal in caliber measuring 0.3 cm in diameter. RIGHT KIDNEY: No hydronephrosis. No renal calculi or focal parenchymal lesions. The kidney measures 11.6 cm in maximum dimension. Assessment & Plan Assessment & Plan (1) High serum ferritin: Code(s): R79.89 - Other specified abnormal findings of blood chemistry Category: Medical (2) Hepatomegaly: Code(s): R16.0 - Hepatomegaly, not elsewhere classified Category: Medical Plan Patient continues to have a rise in liver enzymes as well as in ferritin. She will be sent to Hematology even though negative for H63D pathogenic variant. Patient was encouraged to eat low-fat, low-salt, low carbon high protein diet. Will repeat liver fibrosis panel, liver panel and ferritin. Patient will return to our office in 6 months, sooner on as needed basis. She is agreeable to this plan and verbalizes understanding of instructions. She was given the opportunity to ask questions and all questions answered. Thank you for allowing me to participate in her care Orders: Orders Ferritin Today R74.8 - Abnormal levels of other serum enzymes Liver Fibrosis Pnl Today K76.0 - Fatty (change of) liver, not elsewhere classified Liver Panel Today R74.01 - Elevation of levels of liver transaminase levels Referrals Hematology & Oncology Referral R79.89 - Other specified abnormal findings of blood chemistry Coding Level of Care Code Est Pt Level 3 (57599) Diagnoses High serum ferritin R79.89 Hepatomegaly R16.0 Time Spent (min) 30 Comment 20 minutes spent with patient and additional 10 minutes spent reviewing her records
[2024-12-20 11:01] VITALS: BP 148/94; PULSE 82; O2SAT 98; BMI 21.0
== END 2024-12-20 11:21 | disposition home or self-care (01) ==
LOC: HO.HGI 10:51
PROVIDERS: PCP Nurse Practitioner; Visit Provider Nurse Practitioner Family
DX: R79.89 Other specified abnormal findings of blood chemistry (principal); R16.0 Hepatomegaly, not elsewhere classified
CPT/HCPCS: 99213

== ENCOUNTER → 2024-12-20 10:51 | Outpatient (BNVA) | payer OTHER, SELFPAY | PROVIDERS: PCP Nurse Practitioner; Visit Provider Nurse Practitioner Family | DX: R74.01 Elevation of levels of liver transaminase levels (principal); R16.0 Hepatomegaly, not elsewhere classified; R79.89 Other specified abnormal findings of blood chemistry; K76.0 Fatty (change of) liver, not elsewhere classified | CPT/HCPCS: 99212 ==

== ENCOUNTER 2025-02-09 11:02 | Outpatient (REF) | payer OTHER, SELFPAY ==
[2025-02-09 11:15] LABS: MANUAL DIFF FLAG NO
[2025-02-09 11:17] LABS: Hematocrit 44.1 % (37.0-47.0); Hemoglobin 15.7 g/dl (12.0-16.0); Imm Gran Abs Auto 0.01 X10*3/uL (0.00-0.03); Imm Gran Pct Auto 0.2 % (0.0-0.4); Lymphocytes Absolute Auto 2.1 X10*3/uL (1.2-4.9); Mean Corpuscular HGB Conc 35.6 g/dl (31.0-35.0); Mean Corpuscular Hemoglobin 33.1 pg (27.0-33.0); Mean Corpuscular Volume 93.0 fL (80.0-98.0); NRBC Abs Auto 0.000 X10*3/uL (0.0-0.012); NRBC Pct Auto 0.0 /100WBC (0.0-0.2); Platelet Count 205 X10*3/uL (160-400); Red Blood Count 4.74 X10*6/uL (4.20-5.50); White Blood Count 5.9 X10*3/uL (4.8-10.8)
[2025-02-09 12:18] LABS: Alanine Aminotransferase 45 U/L (0-31); Albumin Level 4.6 g/dL (3.5-5.0); Alkaline Phosphatase 92 U/L (39-117); Anion Gap 14 (12-20); Aspartate Amino Transferase 46 U/L (5-31); Blood Urea Nitrogen 7 mg/dL (9-16); Calcium 10.9 mg/dL (8.4-10.2); Carbon Dioxide 30 mmol/L (22-29); Chloride 100 mmol/L (96-108); Estimated Glomerular Filt Rate > 60; Iron 116 mcg/dL (30-160); Percent Iron Saturation 35 % (15-50); Potassium 4.1 mmol/L (3.3-5.1); Sodium 140 mmol/L (135-145); Total Iron Binding Capacity 329 mcg/dL (228-428); Total Protein 6.7 g/dL (6.5-8.0); Unsaturated Iron Binding 213 ug/dL
[2025-02-09 12:21] LABS: Ferritin 515 ng/mL (10-250)
== END 2025-02-09 11:03 | disposition home or self-care (01) ==
LOC: HO.BBR 11:02
PROVIDERS: PCP Internal Medicine; Visit Provider Nurse Practitioner Family
DX: E83.110 Hereditary hemochromatosis (principal)
CPT/HCPCS: 36415; 80053; 82728; 83540; 85025

== ENCOUNTER 2025-03-16 14:06 | Outpatient (REF) | payer OTHER, SELFPAY ==
[2025-03-16 14:17] LABS: MANUAL DIFF FLAG NO
[2025-03-16 14:21] LABS: Hematocrit 44.3 % (37.0-47.0); Hemoglobin 15.2 g/dl (12.0-16.0); Imm Gran Abs Auto 0.01 X10*3/uL (0.00-0.03); Imm Gran Pct Auto 0.1 % (0.0-0.4); Lymphocytes Absolute Auto 2.4 X10*3/uL (1.2-4.9); Mean Corpuscular HGB Conc 34.3 g/dl (31.0-35.0); Mean Corpuscular Hemoglobin 32.3 pg (27.0-33.0); Mean Corpuscular Volume 94.1 fL (80.0-98.0); NRBC Abs Auto 0.000 X10*3/uL (0.0-0.012); NRBC Pct Auto 0.0 /100WBC (0.0-0.2); Platelet Count 221 X10*3/uL (160-400); Red Blood Count 4.71 X10*6/uL (4.20-5.50); White Blood Count 7.8 X10*3/uL (4.8-10.8)
[2025-03-16 16:02] LABS: Alanine Aminotransferase 46 U/L (0-31); Albumin Level 4.6 g/dL (3.5-5.0); Alkaline Phosphatase 88 U/L (39-117); Anion Gap 11 (12-20); Aspartate Amino Transferase 54 U/L (5-31); Blood Urea Nitrogen 10 mg/dL (9-16); Calcium 10.2 mg/dL (8.4-10.2); Carbon Dioxide 30 mmol/L (22-29); Chloride 98 mmol/L (96-108); Estimated Glomerular Filt Rate > 60; Iron 126 mcg/dL (30-160); Percent Iron Saturation 36 % (15-50); Potassium 3.3 mmol/L (3.3-5.1); Sodium 136 mmol/L (135-145); Total Iron Binding Capacity 350 mcg/dL (228-428); Total Protein 7.2 g/dL (6.5-8.0); Unsaturated Iron Binding 224 ug/dL
[2025-03-16 16:16] LABS: Ferritin 577 ng/mL (10-250)
== END 2025-03-16 14:07 | disposition home or self-care (01) ==
LOC: HO.BBR 14:06
PROVIDERS: PCP Internal Medicine; Visit Provider Nurse Practitioner Family
DX: E83.110 Hereditary hemochromatosis (principal)
CPT/HCPCS: 36415; 80053; 82728; 83540; 85025

== ENCOUNTER 2025-04-20 13:50 | Outpatient (REF) | payer OTHER, SELFPAY ==
[2025-04-20 13:58] LABS: MANUAL DIFF FLAG NO
[2025-04-20 14:03] LABS: Hematocrit 45.0 % (37.0-47.0); Hemoglobin 15.4 g/dl (12.0-16.0); Imm Gran Abs Auto 0.01 X10*3/uL (0.00-0.03); Imm Gran Pct Auto 0.1 % (0.0-0.4); Lymphocytes Absolute Auto 2.4 X10*3/uL (1.2-4.9); Mean Corpuscular HGB Conc 34.2 g/dl (31.0-35.0); Mean Corpuscular Hemoglobin 32.2 pg (27.0-33.0); Mean Corpuscular Volume 93.9 fL (80.0-98.0); NRBC Abs Auto 0.000 X10*3/uL (0.0-0.012); NRBC Pct Auto 0.0 /100WBC (0.0-0.2); Platelet Count 235 X10*3/uL (160-400); Red Blood Count 4.79 X10*6/uL (4.20-5.50); White Blood Count 6.8 X10*3/uL (4.8-10.8)
[2025-04-20 14:46] LABS: Alanine Aminotransferase 57 U/L (0-31); Albumin Level 4.6 g/dL (3.5-5.0); Alkaline Phosphatase 84 U/L (39-117); Anion Gap 12 (12-20); Aspartate Amino Transferase 71 U/L (5-31); Blood Urea Nitrogen 8 mg/dL (9-16); Calcium 10.4 mg/dL (8.4-10.2); Carbon Dioxide 32 mmol/L (22-29); Chloride 98 mmol/L (96-108); Estimated Glomerular Filt Rate > 60; Iron 130 mcg/dL (30-160); Percent Iron Saturation 36 % (15-50); Potassium 3.6 mmol/L (3.3-5.1); Sodium 138 mmol/L (135-145); Total Iron Binding Capacity 358 mcg/dL (228-428); Total Protein 7.2 g/dL (6.5-8.0); Unsaturated Iron Binding 228 ug/dL
[2025-04-20 15:06] LABS: Ferritin 442 ng/mL (10-250)
== END 2025-04-20 13:51 | disposition home or self-care (01) ==
LOC: HO.BBR 13:50
PROVIDERS: PCP Internal Medicine; Visit Provider Nurse Practitioner Family
DX: E83.110 Hereditary hemochromatosis (principal)
CPT/HCPCS: 36415; 80053; 82728; 83540; 85025

== ENCOUNTER → 2025-05-02 14:00 | Outpatient (BNV) | payer OTHER, SELFPAY | PROVIDERS: PCP Internal Medicine; Referring Provider Nurse Practitioner Family; Visit Provider Nurse Practitioner Family | DX: E83.118 Other hemochromatosis (principal); R74.01 Elevation of levels of liver transaminase levels | CPT/HCPCS: 99213; 99499 ==